=== PATIENT | female | born 1945 | race Caucasian/White ===

== ENCOUNTER 2019-02-16 15:26 | Emergency (ER) | payer MEDICARE ==
[~2019-02-16] VITALS: Ht 167.6 cm; Wt 77.1 kg
--- NOTE | 2019-02-16 15:55 | NUR ---
PT PRESENTS TO ED WITH C/O FEVER (TMAX 101.5) STARTING YESTERDAY. PT DENIES ANY SYMPTOMS BUT DOES NOTE EPIGASTRIC TENDERNESS WITH MD PALPATION. LABS DRAWN, PT INSTRUCTED TO PROVIDE CLEAN CATCH UA, SUPPLIES PROVIDED AT BEDSIDE. EDT AT BEDSIDE FOR EKG.
[2019-02-16] MEDS ORDERED: SODIUM CHLORIDE FLUSH 10ML SYR IVF ONE (16:00)
[2019-02-16] MEDS ORDERED: ACETAMINOPHEN 325 MG TABLET PO ONE (16:00)
[2019-02-16 16:02] LABS: BASOPHILS # (AUTO) 0.03 x10^3/uL (0-0.1); BASOPHILS % (AUTO) 0 % (0-1); EOSINOPHILS % (AUTO) 0 % (1-7); LYMPHOCYTES # (AUTO) 0.71 x10^3/uL (1-3.4); LYMPHOCYTES % (AUTO) 6 % (22-44); MD NO; MEAN CORPUSCULAR HEMOGLOBIN 30.2 pg (27.0-34.8); MEAN CORPUSCULAR VOLUME 88.6 fL (80-100); MEAN PLATELET VOLUME 7.1 fL (7.4-10.4); MONOCYTES # (AUTO) 0.74 x10^3/uL (0.2-0.8); MONOCYTES % (AUTO) 6 % (2-9); NEUTROPHILS # (AUTO) 10.72 x10^3/uL (1.8-6.8); NEUTROPHILS % (AUTO) 88 % (42-75); PLATELET COUNT 304 x10^3/uL (130-400); RED BLOOD COUNT 4.54 x10^6/uL (3.82-5.3); RED CELL DISTRIBUTION WIDTH 13.9 % (9.6-15.2)
[2019-02-16 16:14] LABS: ALANINE AMINOTRANSFERASE 23 U/L (12-78); ALBUMIN 3.3 g/dL (3.4-5.0); ANION GAP 6 mmol/L (5-15); CALCIUM 8.7 mg/dL (8.5-10.1); CHLORIDE 105 mmol/L (98-107)
[2019-02-16 16:16] LABS: ALKALINE PHOSPHATASE 87 U/L (45-117); BILIRUBIN,TOTAL 1.7 mg/dL (0.2-1.0); TOTAL PROTEIN 8.3 g/dL (6.4-8.2)
[2019-02-16] MEDS ORDERED: ACETAMINOPHEN 325 MG TABLET ONE (16:57)
[2019-02-16 17:23] LABS: MICROSCOPIC INDICATED
[2019-02-16 17:35] LABS: CULTURE INDICATED? NO
[2019-02-16] MEDS ORDERED: OMNIPAQUE 350 MG/ML, 100ML BOTTLE ONE (17:43)
--- NOTE | 2019-02-16 17:44 | NUR ---
MD ROSARIO GILBERT RN TO ADMINISTER TYLENOL BEFORE CT RESULTED. Addendum: 02/16/19 at 1744 by ASAF MD ROSARIO GILBERT RN TO ADMINISTER TYLENOL BEFORE CT RESULTED. PT MEDICATED PER EMAR, TOLERATED WELL. PT A&O, RESPS EVEN AND UNLABORED. NO COMPLAINT AT THIS TIME.
--- NOTE | 2019-02-16 17:55 | NUR ---
PT RETURN TO ROOM.
--- NOTE | 2019-02-16 18:45 | NUR ---
SCOTT PONCE AT BEDSIDE TO UPDATE PT WITH RESULTS AND POC. PT AWAKE, ALERT, RESPS EVEN AND UNLABORED.
[2019-02-16 19:00] VITALS: BP 103/49
--- NOTE | 2019-02-16 19:27 | NUR ---
REPORT TO BREAK ANYA TONY. PT TO BE DC'D.
== END 2019-02-16 20:06 | disposition home or self-care (01) ==
LOC: ED 17:43
DX: R50.9 Fever, unspecified (principal); R10.13 Epigastric pain; R51 Headache; R10.11 Right upper quadrant pain; R53.1 Weakness; J45.909 Unspecified asthma, uncomplicated
CPT/HCPCS: 36415; 71045; 74177; 80053; 81001; 83605; 83690; 85025; 87040; 93005; 99284; Q9967

== ENCOUNTER 2019-02-18 00:59 | Inpatient (IN) | payer MEDICARE ==
[~2019-02-18] VITALS: Ht 167.6 cm; Wt 82.5 kg
[2019-02-18 02:00] VITALS: BP 114/64
[2019-02-18] MEDS ORDERED: LABETALOL 5MG/ML, 20ML IVPush PRN (03:00)
[2019-02-18] MEDS: HEPARIN 5,000 UNITS/ML, 1ML SQ SCH ×4 (03:00→19:17)
[2019-02-18] MEDS ORDERED: ONDANSETRON 2MG/ML, 2ML IVPush PRN (03:00)
[2019-02-18] MEDS: CEFTRIAXONE PMX 1GM/50ML 50 ML IV SCH (03:52)
[2019-02-18] MEDS: AZITHROMYCIN 500 MG in SODIUM CHLORIDE 0.9% 250 ML IV SCH (04:45)
[2019-02-18 04:53] VITALS: BP 133/71
[2019-02-18] MEDS: ACETAMINOPHEN 325 MG TABLET PO PRN ×3 (05:27→20:57)
[2019-02-18 05:29] LABS: BASOPHILS # (AUTO) 0.02 x10^3/uL (0-0.1); BASOPHILS % (AUTO) 0 % (0-1); EOSINOPHILS % (AUTO) 0 % (1-7); LYMPHOCYTES # (AUTO) 1.11 x10^3/uL (1-3.4); LYMPHOCYTES % (AUTO) 8 % (22-44); MD NO; MEAN CORPUSCULAR HEMOGLOBIN 30.3 pg (27.0-34.8); MEAN CORPUSCULAR HGB CONC 33.8 g/dL (32.4-35.8); MEAN CORPUSCULAR VOLUME 89.5 fL (80-100); MEAN PLATELET VOLUME 7.4 fL (7.4-10.4); MONOCYTES # (AUTO) 0.93 x10^3/uL (0.2-0.8); MONOCYTES % (AUTO) 7 % (2-9); NEUTROPHILS # (AUTO) 11.36 x10^3/uL (1.8-6.8); NEUTROPHILS % (AUTO) 85 % (42-75); PLATELET COUNT 239 x10^3/uL (130-400); RED BLOOD COUNT 4.03 x10^6/uL (3.82-5.3); RED CELL DISTRIBUTION WIDTH 14.3 % (9.6-15.2)
[2019-02-18] MEDS ORDERED: POTASSIUM CHLORIDE 20 MEQ TAB.ER.PRT PO ONE ×2 (05:30→07:30)
[2019-02-18 05:33] LABS: ALANINE AMINOTRANSFERASE 30 U/L (12-78); ALBUMIN 2.8 g/dL (3.4-5.0); ANION GAP 8 mmol/L (5-15); CALCIUM 8.2 mg/dL (8.5-10.1); CHLORIDE 107 mmol/L (98-107); CREATININE 1.06 mg/dL (0.55-1.02)
[2019-02-18 05:35] LABS: ALKALINE PHOSPHATASE 78 U/L (45-117); BILIRUBIN,TOTAL 0.7 mg/dL (0.2-1.0)
[2019-02-18 07:29] VITALS: BP 121/65
[2019-02-18] MEDS: SODIUM CHLORIDE 0.9% 1,000 ML IV SCH ×2 (09:37→21:58)
[2019-02-18] MEDS ORDERED: ATOR10TA9 PO (12:15)
[2019-02-18 12:45] VITALS: BP 146/73
[2019-02-18 13:09] LABS: HEMOGLOBIN A1C 5.7 % (4.2-6.3)
[2019-02-18 19:30] VITALS: BP 142/67
[2019-02-18] MEDS: ATORVASTATIN 10 MG TABLET PO SCH (21:00)
[2019-02-19] MEDS: CEFTRIAXONE PMX 1GM/50ML 50 ML IV SCH (03:28)
[2019-02-19 04:18] VITALS: BP 137/62
[2019-02-19] MEDS: SODIUM CHLORIDE 0.9% 1,000 ML IV SCH ×2 (05:20→17:07)
[2019-02-19] MEDS: AZITHROMYCIN 500 MG in SODIUM CHLORIDE 0.9% 250 ML IV SCH (05:20)
[2019-02-19 05:28] LABS: ALBUMIN 2.3 g/dL (3.4-5.0); ANION GAP 6 mmol/L (5-15); CHLORIDE 109 mmol/L (98-107)
[2019-02-19 05:29] LABS: CREATININE 0.82 mg/dL (0.55-1.02)
[2019-02-19 05:41] LABS: BASOPHILS # (AUTO) 0.02 x10^3/uL (0-0.1); BASOPHILS % (AUTO) 0 % (0-1); EOSINOPHILS % (AUTO) 0 % (1-7); LYMPHOCYTES % (AUTO) 8 % (22-44); MD NO; MEAN CORPUSCULAR HEMOGLOBIN 30.1 pg (27.0-34.8); MEAN CORPUSCULAR HGB CONC 33.6 g/dL (32.4-35.8); MEAN CORPUSCULAR VOLUME 89.4 fL (80-100); MEAN PLATELET VOLUME 7.5 fL (7.4-10.4); MONOCYTES # (AUTO) 0.71 x10^3/uL (0.2-0.8); MONOCYTES % (AUTO) 9 % (2-9); NEUTROPHILS # (AUTO) 6.91 x10^3/uL (1.8-6.8); NEUTROPHILS % (AUTO) 83 % (42-75); PLATELET COUNT 219 x10^3/uL (130-400); RED BLOOD COUNT 3.59 x10^6/uL (3.82-5.3); RED CELL DISTRIBUTION WIDTH 14.1 % (9.6-15.2)
[2019-02-19] MEDS ORDERED: VANCOMYCIN PER PHARMACY MC PRN (07:00)
[2019-02-19] MEDS ORDERED: PHARMACOKINETIC MONITORING MC PRN (07:00)
[2019-02-19] MEDS ORDERED: PHARMACOKINETIC CONSULTATION MC ONE (07:00)
[2019-02-19] MEDS: VANCOMYCIN 1,500 MG in SODIUM CHLORIDE 0.9% 250 ML IV SCH (08:55)
[2019-02-19 09:31] VITALS: BP 121/65
[2019-02-19] MEDS: ACETAMINOPHEN 325 MG TABLET PO PRN ×2 (10:17→19:41)
[2019-02-19] MEDS: HEPARIN 5,000 UNITS/ML, 1ML SQ SCH ×2 (11:00→17:24)
[2019-02-19 12:27] VITALS: BP 109/63
[2019-02-19 20:01] VITALS: BP 114/64
[2019-02-19] MEDS: ATORVASTATIN 10 MG TABLET PO SCH (20:59)
[2019-02-20] MEDS: ACETAMINOPHEN 325 MG TABLET PO PRN ×4 (00:48→21:22)
[2019-02-20] MEDS: SODIUM CHLORIDE 0.9% 1,000 ML IV SCH ×2 (00:48→12:40)
[2019-02-20 01:07] VITALS: BP 126/72
[2019-02-20] MEDS: HEPARIN 5,000 UNITS/ML, 1ML SQ SCH ×3 (03:00→16:46)
[2019-02-20] MEDS: CEFTRIAXONE PMX 1GM/50ML 50 ML IV SCH (04:00)
[2019-02-20] MEDS: AZITHROMYCIN 500 MG in SODIUM CHLORIDE 0.9% 250 ML IV SCH (04:41)
[2019-02-20 05:52] LABS: ALBUMIN 2.3 g/dL (3.4-5.0); ANION GAP 5 mmol/L (5-15); CALCIUM 7.9 mg/dL (8.5-10.1); CHLORIDE 111 mmol/L (98-107)
[2019-02-20 05:55] LABS: CREATININE 0.71 mg/dL (0.55-1.02)
[2019-02-20 08:00] VITALS: BP 146/71
[2019-02-20] MEDS ORDERED: POTASSIUM CHLORIDE 20 MEQ TAB.ER.PRT PO ONE (08:00)
[2019-02-20] MEDS: VANCOMYCIN 1,500 MG in SODIUM CHLORIDE 0.9% 250 ML IV SCH (08:14)
[2019-02-20 09:02] LABS: BASOPHILS # (AUTO) 0.04 x10^3/uL (0-0.1); BASOPHILS % (AUTO) 1 % (0-1); EOSINOPHILS # (AUTO) 0.05 x10^3/uL (0-0.4); EOSINOPHILS % (AUTO) 1 % (1-7); LYMPHOCYTES # (AUTO) 0.68 x10^3/uL (1-3.4); LYMPHOCYTES % (AUTO) 13 % (22-44); MD NO; MEAN CORPUSCULAR HEMOGLOBIN 30.3 pg (27.0-34.8); MEAN CORPUSCULAR HGB CONC 34.2 g/dL (32.4-35.8); MEAN CORPUSCULAR VOLUME 88.7 fL (80-100); MEAN PLATELET VOLUME 7.7 fL (7.4-10.4); MONOCYTES # (AUTO) 0.58 x10^3/uL (0.2-0.8); MONOCYTES % (AUTO) 11 % (2-9); NEUTROPHILS # (AUTO) 3.75 x10^3/uL (1.8-6.8); NEUTROPHILS % (AUTO) 74 % (42-75); PLATELET COUNT 232 x10^3/uL (130-400); RED CELL DISTRIBUTION WIDTH 14.3 % (9.6-15.2)
[2019-02-20 13:05] VITALS: BP 131/71
[2019-02-20] MEDS ORDERED: LEVOFLOXACIN/PMX 750MG/150ML 150 ML IV SCH (17:00)
[2019-02-20] MEDS: GUAIFENESIN 200 MG TABLET PO SCH ×2 (17:36→19:58)
[2019-02-20 18:53] VITALS: BP 126/66
[2019-02-20] MEDS: ATORVASTATIN 10 MG TABLET PO SCH (19:58)
[2019-02-21 00:09] VITALS: BP 123/61
[2019-02-21 00:50] LABS: MICROSCOPIC AUTO
[2019-02-21 00:51] LABS: CULTURE INDICATED? NO
[2019-02-21] MEDS: SODIUM CHLORIDE 0.9% 1,000 ML IV SCH ×3 (01:43→22:36)
[2019-02-21] MEDS: HEPARIN 5,000 UNITS/ML, 1ML SQ SCH ×3 (01:43→19:00)
[2019-02-21 05:38] LABS: ALBUMIN 2.3 g/dL (3.4-5.0); ANION GAP 5 mmol/L (5-15); BASOPHILS # (AUTO) 0.03 x10^3/uL (0-0.1); BASOPHILS % (AUTO) 1 % (0-1); CALCIUM 8.1 mg/dL (8.5-10.1); CHLORIDE 112 mmol/L (98-107); EOSINOPHILS # (AUTO) 0.09 x10^3/uL (0-0.4); EOSINOPHILS % (AUTO) 2 % (1-7); LYMPHOCYTES # (AUTO) 0.72 x10^3/uL (1-3.4); LYMPHOCYTES % (AUTO) 15 % (22-44); MD NO; MEAN CORPUSCULAR HEMOGLOBIN 30.2 pg (27.0-34.8); MEAN CORPUSCULAR VOLUME 88.8 fL (80-100); MEAN PLATELET VOLUME 7.2 fL (7.4-10.4); MONOCYTES % (AUTO) 12 % (2-9); NEUTROPHILS # (AUTO) 3.51 x10^3/uL (1.8-6.8); NEUTROPHILS % (AUTO) 71 % (42-75); PLATELET COUNT 257 x10^3/uL (130-400); RED BLOOD COUNT 3.52 x10^6/uL (3.82-5.3); RED CELL DISTRIBUTION WIDTH 14.3 % (9.6-15.2)
[2019-02-21 05:39] LABS: CREATININE 0.63 mg/dL (0.55-1.02)
[2019-02-21] MEDS: GUAIFENESIN 200 MG TABLET PO SCH ×2 (05:53→11:00)
[2019-02-21 06:38] VITALS: BP 154/74
[2019-02-21] MEDS ORDERED: DIPHENHYDRAMINE 12.5MG/5ML, 10ML UDC PO PRN (09:30)
[2019-02-21] MEDS ORDERED: LEVOFLOXACIN 750 MG TABLET PO SCH (09:30)
[2019-02-21] MEDS: LACTOBACILLUS 1GM/ PACKET PO SCH ×3 (10:23→20:40)
[2019-02-21 13:26] VITALS: BP 153/73
[2019-02-21] MEDS ORDERED: GUAIFENESIN 200 MG TABLET PO PRN (13:30)
[2019-02-21] MEDS: ACETAMINOPHEN 325 MG TABLET PO PRN (13:43)
[2019-02-21 20:03] VITALS: BP 151/74
[2019-02-21] MEDS: ATORVASTATIN 10 MG TABLET PO SCH (20:40)
[2019-02-22 00:39] VITALS: BP 162/79
[2019-02-22] MEDS: HEPARIN 5,000 UNITS/ML, 1ML SQ SCH ×3 (03:00→19:00)
[2019-02-22 05:59] LABS: ALBUMIN 2.4 g/dL (3.4-5.0); ANION GAP 6 mmol/L (5-15); CALCIUM 8.4 mg/dL (8.5-10.1); CHLORIDE 114 mmol/L (98-107)
[2019-02-22 06:03] LABS: CREATININE 0.66 mg/dL (0.55-1.02)
[2019-02-22 06:05] LABS: BASOPHILS # (AUTO) 0.03 x10^3/uL (0-0.1); BASOPHILS % (AUTO) 1 % (0-1); EOSINOPHILS # (AUTO) 0.18 x10^3/uL (0-0.4); EOSINOPHILS % (AUTO) 4 % (1-7); LYMPHOCYTES # (AUTO) 1.08 x10^3/uL (1-3.4); LYMPHOCYTES % (AUTO) 23 % (22-44); MD NO; MEAN CORPUSCULAR HEMOGLOBIN 29.9 pg (27.0-34.8); MEAN CORPUSCULAR HGB CONC 33.1 g/dL (32.4-35.8); MEAN CORPUSCULAR VOLUME 90.5 fL (80-100); MEAN PLATELET VOLUME 6.7 fL (7.4-10.4); MONOCYTES # (AUTO) 0.57 x10^3/uL (0.2-0.8); MONOCYTES % (AUTO) 12 % (2-9); NEUTROPHILS # (AUTO) 2.78 x10^3/uL (1.8-6.8); NEUTROPHILS % (AUTO) 60 % (42-75); PLATELET COUNT 371 x10^3/uL (130-400); RED BLOOD COUNT 3.46 x10^6/uL (3.82-5.3); RED CELL DISTRIBUTION WIDTH 14.1 % (9.6-15.2)
[2019-02-22 07:30] VITALS: BP 152/76
[2019-02-22] MEDS: SODIUM CHLORIDE 0.9% 1,000 ML IV SCH ×2 (08:52→19:40)
[2019-02-22] MEDS: LACTOBACILLUS 1GM/ PACKET PO SCH ×3 (08:57→19:41)
[2019-02-22] MEDS: AMPICILLIN/SULBACTAM 3 GM in SODIUM CHLORIDE 0.9% 100 ML IV SCH ×3 (12:04→23:02)
[2019-02-22 14:11] VITALS: BP 148/74
[2019-02-22 18:55] VITALS: BP 121/75
[2019-02-22] MEDS: ATORVASTATIN 10 MG TABLET PO SCH (19:40)
[2019-02-23 01:47] VITALS: BP 137/79
[2019-02-23] MEDS: HEPARIN 5,000 UNITS/ML, 1ML SQ SCH (02:44)
[2019-02-23] MEDS: SODIUM CHLORIDE 0.9% 1,000 ML IV SCH (04:57)
[2019-02-23] MEDS: AMPICILLIN/SULBACTAM 3 GM in SODIUM CHLORIDE 0.9% 100 ML IV SCH (04:57)
[2019-02-23] MEDS ORDERED: DOXY100T9 PO (07:55)
[2019-02-23] MEDS ORDERED: AMOX1TAB64 PO (07:55)
[2019-02-23] MEDS ORDERED: GUAI200T3 PO (07:55)
[2019-02-23] MEDS: LACTOBACILLUS 1GM/ PACKET PO SCH (09:35)
== END 2019-02-23 09:59 | disposition home health service (06) | DRG 871 ==
LOC: 3NE 01:53
PROVIDERS: ADMIT Family Medicine; ATTEND Family Medicine
DX: A41.9 Sepsis, unspecified organism (principal); J18.1 Lobar pneumonia, unspecified organism; N17.9 Acute kidney failure, unspecified; J45.20 Mild intermittent asthma, uncomplicated; E87.6 Hypokalemia; E78.5 Hyperlipidemia, unspecified; R73.9 Hyperglycemia, unspecified; E78.00 Pure hypercholesterolemia, unspecified; Z82.3 Family history of stroke; Z88.1 Allergy status to other antibiotic agents
CPT/HCPCS: 36415; 71045; 80048; 80053; 81001; 82040; 83036; 83605; 84145; 85025; 87040; G0378; J0295; J0456; J0696; J1956; J3370; J7030; J7050

== ENCOUNTER 2019-08-12 12:03 | Outpatient (CLI) | payer MEDICARE ==
[~2019-08-12 12:03] MED LIST: AMOX1TAB64 PO; ATOR10TA9 PO; DOXY-162 PO; GUAI200T37 PO
== END 2019-08-12 23:59 | disposition home or self-care (01) ==
LOC: CFH 12:03
PROVIDERS: ATTEND Internal Medicine
DX: Z12.31 Encounter for screening mammogram for malignant neoplasm of breast (principal); N64.89 Other specified disorders of breast; Z83.3 Family history of diabetes mellitus; Z80.1 Family history of malignant neoplasm of trachea, bronchus and lung
CPT/HCPCS: 77063; 77067

== ENCOUNTER 2020-03-03 09:46 | Outpatient (CLI) | payer MEDICARE | END 2020-03-03 23:59 | disposition home or self-care (01) | LOC: CFH 09:46 | PROVIDERS: ATTEND Internal Medicine | DX: M81.0 Age-related osteoporosis without current pathological fracture (principal) | CPT/HCPCS: 77080 ==